=== PATIENT | male | born 1945 | race Two or more races ===

== ENCOUNTER 2022-03-31 05:23 | Day surgery (SDC) | payer OTHER ==
[~2022-03-31] VITALS: Ht 172.7 cm; Wt 82.6 kg
[~2022-03-31 05:23] MED LIST: AVAPRO150 MG PO; LASIX20 MG PO; LIPITOR20 MG PO; MILLIPRED5 MG PO; MYFORTIC360 MG PO; PROSCAR5 MG PO; PROTONIX40 MG PO; RAPAMUNE2 MG PO; TRENTAL PO; ZETIA10 MG PO
[2022-03-31] MEDS ORDERED: CILOXAN5 ML OTIC (10:36)
[2022-03-31] MEDS ORDERED: CEPHALEXIN500 M1 PO (10:36)
== END 2022-03-31 13:25 | disposition home or self-care (01) ==
LOC: CIR.AMB 05:23
PROVIDERS: ATTEND Otolaryngology Otology & Neurotology
DX: H66.3X1 Other chronic suppurative otitis media, right ear (principal); Z20.822 Contact with and (suspected) exposure to COVID-19; I10 Essential (primary) hypertension; Z95.1 Presence of aortocoronary bypass graft; I25.10 Atherosclerotic heart disease of native coronary artery without angina pectoris; Z94.1 Heart transplant status; Z86.73 Personal history of transient ischemic attack (TIA), and cerebral infarction without residual deficits; M19.90 Unspecified osteoarthritis, unspecified site